=== PATIENT | female | born 2000 | race Caucasian/White ===

== ENCOUNTER 2022-04-05 08:01 | Emergency (ER) | payer BC, SELFPAY ==
[2022-04-05 08:15] VITALS: BP 114/80; PULSE 110; RESP 20; TEMP 37.3; O2SAT 100
--- NOTE | 2022-04-05 08:19 | ED.URI ---
HPI - URI/Sore Throat General Chief Complaint: Upper Respiratory Infection Stated Complaint: COUGH Time Seen by Provider: 04/05/22 08:19 Source: patient and RN notes reviewed Mode of arrival: ambulatory Limitations: no limitations History of Present Illness HPI Narrative: 21-year-old female presenting for complaint cough and bilateral ear pain worsening over the past 5 days. She endorses flu like symptoms at the onset with fever, body, and fatigue which have resolved over last 2 days. States last night she felt more congested ear pain and cough persisted, productive of yellow or green sputum. She denies shortness of breath, wheezing, nausea, vomiting, diarrhea. She has taken Sudafed and decongestants for symptoms. She denies sick contacts. MD elicited complaint: cough Related Data Allergies Allergy/AdvReac Type Severity Reaction Status Date / Time No Known Allergies Allergy Unverified 04/05/22 08:12 Review of Systems Review of Systems: ROS per HPI Exam Narrative: GENERAL: Ill-appearing, nontoxic EYES: PERRLA, conjunctivae clear ENT: Mucous membranes moist. Bilateral external nares red and excoriated. Bilateral TMs erythematous, bulging and intact, with purulent effusion. No drainage no tragal tenderness. Oropharynx without lesions or exudate, no drooling, no hoarseness, no trismus, uvula midline. NECK: Supple. No lymphadenopathy CHEST: Clear to auscultation, breath sounds equal. No wheezing, rhonchi, rales, or stridor. No respiratory distress, speaks in full sentences. HEART: Regular rate and rhythm. No murmur heard. SKIN: Warm, dry, no rash. NEURO: Alert and oriented x3. PSYCH: Normal mood and affect Course Course Emergency Course: Patient is aware of diagnosis, understands and agrees to treatment plan. Anticipatory guidance given. Patient agrees to follow-up as directed and is aware of reasons to seek care at the emergency department. Portions of this record may have been created with voice recognition software Level of Care: Express Care Visit Vital Signs Vital signs: Vital Signs Temperature 99.1 F 04/05/22 08:15 Pulse Rate 110 H 04/05/22 08:15 Respiratory Rate 20 04/05/22 08:15 Blood Pressure 114/80 04/05/22 08:15 Pulse Oximetry 100 04/05/22 08:15 Temperature 99.1 F 04/05/22 08:15 Pulse Rate 110 H 04/05/22 08:15 Respiratory Rate 20 04/05/22 08:15 Blood Pressure 114/80 04/05/22 08:15 Pulse Oximetry 100 04/05/22 08:15 reviewed MDM - URI/Sore Throat MDM Narrative Medical decision making narrative: Advised supportive measures and signs/symptoms to go to the ER. Pt is appropriate for outpt treatment and f/u. Differential Diagnosis Differential diagnosis: Likely upper respiratory infection, otitis media, sinusitis, viral infection and bronchitis Discharge Plan Discharge Clinical Impression: Viral infection, Otitis media Patient Disposition: Home, Self-Care Condition: Stable Instructions: Antibiotic Form, Ear Infection (ED) Additional Instructions: Take antibiotics as directed. Recommend antihistamine such as Benadryl, Zyrtec or Sarahy for sinus congestion Flonase nasal spray, 1 spray in each nostril once daily until symptoms improve Symptomatic treatment includes: rest, fluids, and increase humidity of the air at home. Tylenol and Motrin every 8 hours as needed to reduce fever, pain Benzonatate as needed for cough Please schedule a follow-up visit with your personal physician for further evaluation and treatment within 3-5days. If your symptoms persist, change or worsen significantly, go to the emergency department for further evaluation. Prescriptions: New azithromycin [Zithromax Z-Castro] 250 mg tablet See Rx Instructions .ROUTE .COMPLEX Qty: 6 0RF Rx Instructions: For 250 mg dose pack: take 500 mg today (day 1), then 250 mg for 4 days (days 2-5) benzonatate 200 mg capsule 200 mg PO TID PRN (Reason: cough) Qty: 20 0RF Foll
== END 2022-04-05 08:36 | disposition home or self-care (01) ==
PROVIDERS: Emergency Provider Nurse Practitioner Family
DX: B34.9 Viral infection, unspecified (principal); H66.93 Otitis media, unspecified, bilateral
CPT/HCPCS: 99203; G0463

== ENCOUNTER 2025-02-26 19:20 | Emergency (ER) | payer BC, SELFPAY ==
--- NOTE | ~2025-02-26 | US_ITS ---
EXAMINATION: US OB <= 14 weeks fetus DATE: 02/26/2025 21:42 INDICATION: Vaginal and abdominal pain during first trimester of TECHNIQUE: Real-time pelvic ultrasound utilizing both a transvaginal and transabdominal probe was performed. The interpreting radiologist was not present for the study. COMPARISON: None. FINDINGS: The uterus measures 9.6 x 8.2 x 9.2 cm. There is an intrauterine gestational sac. A yolk sac and pole are identified. The crown rump length measures 3.2 cm, which correlates with an estimated gestational age of 10 weeks and 1 days. heart motion is identified measuring 180 beats per minute (bpm) by M-mode Doppler. The right ovary measures 3.0 x 2.3 x 2.3 cm. The left ovary measures 1.9 x 1.9 x 1.6 cm. Vascular flow identified at both ovaries on color Doppler. There is no free fluid in the pelvis. IMPRESSION: 1. Single living fetus with heart rate of 180 bpm. 2. Gestational age by ultrasound of 10 weeks 1 day(s) +/- 6 day(s) with ultrasound estimated date of delivery (TITA) of 09/23/2025. Reviewed, dictated and finalized at location A. D RAIL INST[employer]ER IMPRESSION: 1. Single living fetus with heart rate of 180 bpm. 2. Gestational age by ultrasound of 10 weeks 1 day(s) +/- 6 day(s) with ultras ound estimated date of delivery (TITA) of 09/23/2025.
--- OUTSIDE RECORDS SUMMARY | 2025-02-26 19:22 | XMS_ITS | Data Portability ---
Author Organization [facility] [place], [place] Address [address] [place] [address] Assessment Encounter Date Assessment Date Assessment LastModified by Organization Details LastModified Time 07/25/2022 07/25/2022 Annual gynecological exam performed. Patient will come back in a year unless there are new symptoms. Suggest Calcium with Vitamin D if not eating in diet. Patient advised to get annual flu shot. Recommend yearly physicals and preform monthly breast exams. Genetic testing is available for patients with family history of cancer. Engage in safe sexual practices, use condoms. Encouraged to have daily exercise. Avoid tobacco and illicit drugs, moderation of alcohol. If BMI greater than 25 dietary consult advised. If you have any questions please call or email. Not available 07/25/2022 15:07:16 11/13/2023 11/13/2023 Annual gynecological exam performed. Patient will come back in a year unless there are new symptoms. Take Calcium with Vitamin D 1200mg daily if not receiving in daily diet. It is strongly advised to have an annual flu shot and up can obtain at most pharmacies. If you have not had a TDap shot in the last 10 years you should obtain one as well. Discussed with patient & provided with information regarding Gardisil vaccine to prevent the 4 strains for HPV that cause cervical cancer if under age 26. Encourage safe sexual practices, to use condoms and limit partners if not already in a monogamous relationship. Do monthly self breast exams. Have mammogram yearly or every other year depending on family history. BRCA testing is now available for patients with strong genetic history of female cancer. If interested contact the office. Engage in daily exercise of low impact aerobic exercise 45-60 minutes 4-5 times weekly. Avoid tobacco and illicit drugs as well as using moderation with alcohol intake less than 1-2 8 oz beverages daily. This lifestyle behavior pattern will lead to less health conditions and longer life span. If BMI greater than 25 weight watchers or dietary consult advised. pap up to date-deferred declined std testing Patient received above instructions, and questions have been answered. If you have any questions please call or respond to this email. Patient was made aware of the patient portal and may obtain a paper copy of today's plan if desired. [email or web address] Not available 11/13/2023 10:55:00 11/14/2024 11/14/2024 Annual gynecological exam performed. Patient will come back in a year unless there are new symptoms. [email or web address] Not available 11/14/2024 09:56:13 Plan of Treatment Reminders Order Date Submit Date Provider Last Modified By Organization Details Last Modified Time Details Appointments U/S OB FIRST LOOK 2024 11:00A M ULTRASOUND Not available Not available Not available OB NEW 2024 11:30A M Ce English CNM Not available Not available Not available Lab None record ed. Referral None record ed. Procedures None record ed. Surgeries None record ed. Imaging None record ed. Medication Orders None record ed. Patient TargetsNo targets recorded. Patient InstructionsNo instructions recorded. Reason for Referral None Reported. Results Created Date Observation Date Name Description Value Unit Range Abnormal Flag Note LastModifiedBy Organization Detail LastModifiedTime 07/26/19 23 07/25/2022 IMAGE GUIDE D PAP, REFLE X HPV IF ASCUS ONLY image guided Pap, reflex HPV ASCUS only SEE RESULT S BELOW CASE REPOR T: Cytol ogy Gynec ologi mariajose Repor t Case: [id number] Autho dot levine Provi randall: Ce Tom NP Colle cted: 07/25 1540 Order ing Locat ion: [place] [facility] Recei dia: 07/28 1200 First Scree n: Nacha mpass ak, Sivil ay, CT Speci men: Scree prashanth Pap - Image d, Cervi x STATE MENT OF ADEQU ACY: Satis facto ry for evalu ation Trans forma tion zone compo nent prese nt FINAL DIAGN OSIS: Negat stephanie for Intra epith elial Lesio n or Malig brien (NIL) . Elect yoli umana america d by Sathya rodgers ak, Mariam ay, CT on 023 at 3:10 PM ----- ----- ----- ----- ----- ----- ----- ----- ----- ----- ----- ----- ----- ----- ----- ----- ----- ---- COMME NT: This speci men was revie wed by a Cytot echno logis t and/o r Patho logis t (as indic ated in this repor t) after evalu ation using the Thinp rep Imagi ng Syste m. CLINI MARIAJOSE INFOR MATIO N: Menst rual Statu s: LMP (if appli cable ): Clini mariajose Histo ry/Pr eviou s Pap: Type of Neopl marcie (if appli cable ): Signi fican t Clini mariajose Findi ngs: Other Histo ry: Hormo choco (if appli cable ): PAP EDUCA CRISTIN L NOTE: The Pap Test is a scree prashanth test with an inher ent false negat stephanie rate. Liqui d-bas ed sampl ing may decre ase, but will not elimi fatimah, false negat stephanie resul ts. A negat stephanie resul t does not precl ude the prese nce and/o r devel opmen t of disea se, since the prese nce of abnor mal cells in the sampl e depen ds on the locat ion of the lesio n and sampl ing techn ique. Gissell nued regul ar scree prashanth is the best metho d of cance r preve ntion . If repor kelvin cytol ogic findi ng do not corre late with physi mariajose and/o r histo rical findi ngs, furth er inves tigat ion is recom claudine d, as michel marie nted. Not Available [facility] (Lab) [address], [place], [address], 07/29/2022 16:13:41 11/15/19 25 11/14/2024 IMAGE GUIDE D PAP, REFLE X HPV IF ASCUS ONLY image guided Pap, reflex HPV ASCUS only SEE RESULT S BELOW CASE REPOR T: Cytol ogy Gynec ologi mariajose Repor t Case: [id number] Autho dot levine Provi randall: Dermo dy, Ann , ANP, BOILER ROOM OPERATOR Colle cted: 11/14 0953 Order ing Locat ion: [place] [facility] [place] Recei dia: 11/15 0907 First Scree n: April Lujan, CT Speci men: Mare alford Pap - Image d, Cervi x STATE MENT OF ADEQU ACY: Satis facto ry for evalu ation Trans forma tion zone compo nent prese nt ----- ----- ----- ----- ----- ----- ----- ----- ----- ----- ----- ----- ----- ----- ----- ----- ----- ---- FINAL DIAGN OSIS: Negat stephanie for Intra epith elial Adithya crain or Kayla tesfaye ([facility]) . Elect yoli umana america d by April Lujan, CT on 2024 at 1246 CDT ----- ----- ----- ----- ----- ----- ----- ----- ----- ----- ----- ----- ----- ----- ----- ----- ----- ---- COMME NT: This speci men was revie wed by a Cytot echno logis t and/o r Patho logis t (as indic ated in this repor t) after evalu ation using the Thinp rep Imagi ng Syste m. CLINI MARIAJOSE INFOR MATIO N: Menst rual Statu s: LMP (if appli cable ): Clini mariajose Histo ry/Pr eviou s Pap: Type of Neopl marcie (if appli cable ): Signi fican t Clini mariajose Findi ngs: Other Histo ry: Hormo choco (if appli cable ): PAP EDUCA CRISTIN L NOTE: The Pap Test is a scree prashanth test with an inher ent false negat stephanie rate. Liqui d-bas ed sampl ing may decre ase, but will not elimi fatimah, false negat stephanie resul ts. A negat stephanie resul t does not precl ude the prese nce and/o r devel opmen t of disea se, since the prese nce of abnor mal cells in the sampl e depen ds on the locat ion of the lesio n and sampl ing techn ique. Gissell nued regul ar scree prashanth is the best metho d of cance r preve ntion . If repor kelvin cytol ogic findi ng do not corre late with physi mariajose and/o r histo rical findi ngs, furth er inves tigat ion is recom claudine d, as clini edward warra nted. Not Available [facility] (Lab) [address], [place], [address], 11/16/2024 13:50:12 11/15/19 25 11/14/2024 CT/GC AND TRICH OMONA S VAGIN JOBY (RRNA ), THINP REP VIAL CT/GC and trichomonas vaginalis (rrna), thinprep SEE RESULT S BELOW negati ve CHLAM YDIA TRACH OMATI S, PCR: Negat stephanie NEISS ERIA GONOR RHOEA E, PCR: Negat stephanie TRICH OMONA S VAGIN JOBY RIBOS OMAL RNA (RRNA ): Negat stephanie Not Available [facility] (Lab) [address] [facility], [place], [address], 11/16/2024 13:50:13 02/16/20 25 02/15/2025 CT/GC AND TRICH OMONA S VAGIN JOBY (RRNA ), URINE chlamydia trachomatis, PCR Negati ve negati ve Not Available [facility] (Lab) [address] , [place], [address], 02/16/2025 14:04:10 02/16/20 25 02/15/2025 CT/GC AND TRICH OMONA S VAGIN JOBY (RRNA ), URINE neisseria gonorrhoeae, PCR Negati ve negati ve Not Available [facility] (Lab) [address] [facility], [place], [address], 02/16/2025 14:04:10 02/16/20 25 02/15/2025 CT/GC AND TRICH OMONA S VAGIN JOBY (RRNA ), URINE trichomonas vaginalis ribosomal RNA (rrna) Negati ve negati ve Not Available [facility] (Lab) [address] [facility], [place], [address], 02/16/2025 14:04:10 02/16/20 25 02/15/2025 US, obste tric, 1st trime ster No observ ation record ed. [email or web address] [address], [place], [address], 02/15/2025 13:25:36 Result Notes None recorded. Problems Name Problem SNOMED Code Status Onset Date Resolution Date Notes Provider Name and Address Organization Details Recorded Time SNOMED CT Concept Completed 201805/22/2021 Encntr for shoe turner exam (general ) (routine ) w/o abn findings ;Recorde d Elsewher e: No Locat ion: [facility] S ource: EHR Architectural Representative bettye: N Caron ce ID: [id number] Joey lable Time: 11:00:00 AM Tammy rios [facility] 18:14:41 Contrace ptive sheath status [id number] Completed 201805/22/2021 Encounte r for initial prescrip tion of other contrace ptives;R ecorded Elsewher e: No Locat ion: [facility] S ource: EHR Architectural Representative bettye: N Arianeti ce ID: 0001 Joey lable Time: 11:00:00 AM Tammy rios [facility] 2 18:14:[address] Concept Completed 201805/22/2021 Encntr for general adult medical exam w/o abnormal findings ;Recorde d Elsewher e: No Locat ion: [facility] S ource: EHR Architectural Representative bettye: N Practi ce ID: 0001 Joey lable Time: 11:00:00 AM Tammyjonas Reed [facility], [facility] 2 18:14:39 Uses combined oral contrace ption 903072929 Completed 201805/22/2021 Encounte r for repeat prescrip tion for control pill;Rec orded Elsewher e: No Locat ion: [facility] S ource: EHR Architectural Representative bettye: N Practi ce ID: 0001 Joey lable Time: 10:45:00 AM Tammy Reed [facility], [facility] 2 18:14:35 Problem Notes None recorded. Procedures Surgical History Date Name Laterality Status Provider Name and Address Organization Details Recorded Time 11/14/2024 Date of Last Pap Smear completed Elise Bui [facility] 02/15/2025 12:30:33 Imaging Results None recorded. Procedure Notes None recorded. Medical Equipment None Reported. Allergies No known drug allergies Medications Name Sig Start Date Stop Date Status Note LastModified by Organization Details LastModified Time azithromy melody 250 mg tablet TAKE 2 TABLETS BY MOUTH TODAY, THEN TAKE 1 TABLET DAILY FOR 4 DAYS 07/25 completed Not Available Not Available Not Available benzonata te 200 mg capsule TAKE 1 CAPSULE BY MOUTH THREE TIMES A DAY NEEDED FOR COUGH 07/25 completed Not Available Not Available Not Available Ortho-Nov um (28) 1 mg-35 mcg tablet take 1 tablet by oral route every day 05/04 completed Prescrib ed Elsewher e: No Locat ion: [facility] M odify By: suzie marr DateTime : 04/18/20 10:45:00 AM Not Available Not Available Not Available Sprintec (28) 0.25 mg-0.035 mg tablet TAKE 1 TABLET BY MOUTH EVERY DAY 07/25 completed Not Available Not Available Not Available active Not Available Not Avai lable Not Available ID NOW COVID-19 Test Kit TEST DIRECTED TODAY 07/25 completed Not Available Not Available Not Available Vitals Date Recorded Body height Body mass index (BMI) Body weight Systolic And Diastolic Provider Name and Address Organization Details Last Updated DateTime 07/25/2022 161.29 cm 18.8 kg/m2 08386.98 g 134/91 mm[Hg] Tammy Reed [facility] 07/25/2022 14:54:16 Date Recorded Body height Body mass index (BMI) Body weight Systolic And Diastolic Provider Name and Address Organization Details Last Updated DateTime 11/13/2023 161.29 cm 19.4 kg/m2 58574.75 g 151/91 mm[Hg] Tammy Reed [facility] 11/13/2023 10:43:44 Date Recorded Body height Body mass index (BMI) Body weight Systolic And Diastolic Systolic And Diastolic Provider Name and Address Organization Details Last Updated DateTime 11/14/2024 162.56 cm 20.1 kg/m2 81827.31 g 146/92 mm[Hg] 142/90 mm[Hg] Margoth Hyatt [facility] 09:57:24 Date Recorded Body height Body mass index (BMI) Body weight Systolic And Diastolic Provider Name and Address Organization Details Last Updated DateTime 02/15/2025 162.56 cm 20.1 kg/m2 70473.31 g 126/85 mm[Hg] Elise Bui [facility] 02/15/2025 12:29:20 Social History Question Answer Notes LastModified by Organizat ion Details LastModified Time Tobacco Smoking Status Never Smoker Tammy Reed [facility] 03/28/2020 11:21:12 Do You Have An Advance Directive? No Information n ot available 02/15/2025 Are You Blind Or Do You Have Difficulty Seeing? No [email or web address] Information n ot available 07/25/2022 What Is Your Level Of Caffeine Consumption? Occasional [email or web address] Information not available 07/25/2022 How Much Tobacco Do You Chew? None Information not available 02/15/2025 In The 14 Days Before Symptom Onset, Have You Had Close Contact With A Laboratory-confirm ed COVID-19 While That Case Was Ill? No [email or web address] Information n ot available 07/25/2022 In The 14 Days Before Symptom Onset, Have You Had Close Contact With A Person Who Is Under Investigation For COVID-19 While That Person Was Ill? No [email or web address] Information not available 07/25/2022 Have You Been To An Area Known To Be High Risk For COVID-19? No [email or web address] Information not available 07/25/2022 Are You Deaf Or Do You Have Serious Difficulty Hearing? No [email or web address] Information not available 07/25/2022 What Type Of Diet Are You Following? REGULAR Information n ot available 02/15/2025 What Is The Highest Grade Or Level Of School You Have Completed Or The Highest Degree You Have Received? [id number] Information not available 02/15/2025 Are There Any Guns Present In Your Home? No Information not available 02/15/2025 What Was The Date Of Your Most Recent Tobacco Screening? 07/25/2022 [email or web address] Information not available 07/25/2022 Do You Use Protection During Sex? No Information not available 02/15/2025 Do You Have Smoke And Carbon Monoxide Detectors In Your Home? Yes [email or web address] Information not available 07/25/2022 How Much Tobacco Do You Smoke? No [email or web address] Information not available 03/28/2020 Do You Use Sunscreen Routinely? Yes [email or web address] Information not available 07/25/2022 Have You Used IV Drugs? No Information not available 02/15/2025 Do You Have Difficulty Walking Or Climbing Stairs? No [email or web address] Information not available 07/25/2022 Sex: Unknown Functional Status Question Answer Note LastModified by Organizat ion Details LastModified Time Do you use any illicit or recreational drugs? No Information not available 07/25/2022 Do you or have you ever used any other forms of tobacco or nicotine? No [email or web address] Information not available 07/25/2022 What is your level of alcohol consumption? None [email or web address] Information not available 03/28/2020 Do you or have you ever used smokeless tobacco? Never used smokeless tobacco Information not available 03/28/2020 Are you able to walk independently without assistance or assistive devices? YESWOREST Information not available 07/25/2022 Are you able to care for yourself independently? Yes [email or web address] Information not available 07/25/2022 What is your occupation? [employer] Information not available 02/15/2025 Do you have difficulty dressing, bathing, grooming, or toileting? No [email or web address] Information not available 07/25/2022 Do you or have you ever used e-cigarettes or vape? Never used electronic cigarettes [email or web address] Information not available 03/28/2020 What is your exercise level? Occasional [email or web address] Information not available 03/28/2020 Mental Status Question Answer Note LastModified by Organization D etails LastModified Time Do you feel stressed (tense, restless, nervous, or anxious, or unable to sleep at night)? [id number] Information not available 02/15/2025 Family History Relationship Description Onset Age of this Age Resolved Age Notes LastModified by Organization Details LastModified Time Mother Malignant neoplasm of breast 40 Not available 2024 11:52:05 Maternal Grandmother Malignant neoplasm of breast Not available 2024 11:52:05 Maternal Grandmother Malignant neoplasm of ovary [email or web address] Not available 03/27 19:45:54 Maternal Grandmother Anemia [email or web address] Not available 04/2019 19:46:04 Paternal Aunt Malignant neoplasm of breast [email or web address] Not available 2024 11:52:05 Notes:Maternal grandmother: Anemia, Cancer, breast, Cancer, ovarian Mother: Cancer, breast Paternal aunt: Cancer, breast Medical History Condition Response Allergies (Food, seasonal, environmental ) N Other N Breast Cancer N Drug/Latex Allergies/Reactions N Blood Transfusion N Lung Disease N Dermatologic Disorders N Defects or Inherited Disease N Breast Problem N Gestational Diabetes N Hematologic disorders N Anesthesia Complications N History of STI N Deep Vein Thrombosis N Polycystic ovary syndrome N Anxiety Disorder N Autoimmune disease N Arthritis N Polyps N Infertility N History of abnormal pap N Acid Reflux (GERD) N Cancer N Varicosities N Stroke N Neurologic/Epilepsy N Endometriosis N High Cholesterol N Fibromyalgia N Headaches N Kidney Disease N Heart Problems N Kidney or Bladder Problems N Thyroid Problems N GI Problems N Eating Disorder N Anemia N Art (IVF or FET) N Psychiatric Illness N Ovarian Cancer N Diabetes N Pulmonary (TB, Asthma) N Hepatitis/Liver Disease N Eczema N Urinary Tract Infection N Abuse/Domestic Violence N Asthma N Trauma/Violence N Depression/ depression N Heart Disease N Pre-Eclampsia N Hypertension N Osteoporosis N Thrombophilias N Gynecological History Statement/Question Response Abnormal Pap N Flow Moderate Date of Last Mammogram Date of LMP 12/14/2024 On BCP's at Conception? N STIs/STDs N Was last menstrual period normal Y HPV Vaccine N Duration of Flow (days) 5 Current Control Method Are cycles usually normal Y Frequency of Cycle (Q days) 28 Most Recent Bone Density Sexually Active? Y None Menses Monthly Y Age of first menstrual cycle 10 Date of Last Pap Smear 11/14/2024 Sexual Problems? N LMP Definite Desired Control Method None N Obstetrics History GPAL:G 0 P 0 0 0 0 Past Encounters Encounter ID Performer Location Encounter Start Date Encounter Closed Date Diagnosis/Indication Diagnosis SNOMED-CT Code Diagnosis ICD10 Code Diagnosis IMO Codes Diagnosis Note [id number] Ce English CNM [place] [address] [address] 03/28/2020 11:08:08 03/28/2020 12:14:27 Gynecologic examination 95902057 Z01.419 [id number] Ce English CNM [place] [address] [address] 05/22/2021 18:02:27 05/23/2021 16:23:31 Pain in pelvis 16311620 R10.2 left sided pain no appt in office will do at [facility] f/u pending results Gynecologi c examination 34587390 Z01.419 Z11.3 Z11.8 [id number] [facility] [address] [address] 07/25/2022 14:44:56 07/25/2022 15:13:24 Gynecologic examination 49657910 Z01.419 Z11.3 Z11.8 [id number] Ce English CNM [place] [address] [address] 11/13/2023 10:34:46 11/13/2023 10:57:26 Gynecologic examination 83295822 Z01.419 Z11.3 Z11.8 [id number] Milton Ospina MD [place] [address] [address] 11/14/2024 09:49:58 11/14/2024 10:22:45 Postcoital bleeding 82544063 N93.0 [id number] Discussed possible causes of post-coita l bleeding, including vaginal dryness, friction/i njury, infection, cervical polyps, cervical dysplasia, and hormonal changes.Re commended safe sexual practices, lubricatio n if experienci ng vaginal dryness, and comfortabl e positions during intercours e.Will r/o infection and cervical dysplasia with pap smear and STI testing.Zoë scussed that no cervical abnormalit ies were noted on physical exam at this time.Patie nt to monitor symptoms and if symptoms persist or worsen, pelvic u/s recommende d for further evaluation .Patient verbalized understand ing. Gynecologi c examination 60351942 Z01.419 [id number] Annual gynecologi mariajose exam performed. Patient will come back in a year unless there are new symptoms. Suggest Calcium with Vitamin D if not eating in diet. Patient advised to get annual flu shot. Recommend yearly physicals and perform monthly breast exams. Genetic testing is available for patients with family history of cancer. Engage in safe sexual practices, use condoms. Encouraged to have daily exercise. Avoid tobacco and illicit drugs, moderation of alcohol. If BMI greater than 25 dietary consult advised. If you have any questions please call or email. Pap smear- pap w/ HPV reflex collected laboratory evaluation - PCP STI testing - requested Venereal d isease screening 137524745 Z11.3 102995 Pt requested STI testing.Zoë scussed the various types of STDs, related symptoms and the potential consequenc es (including effects on fertility) of STD infections . Reviewed ways to limit exposure and prevention techniques . [id number] Milton Ospina MD [place] [address] [address] 02/15/2025 11:51:29 02/15/2025 12:24:29 [id number] Ce Jessica English CNM [place] [address] [address] 02/15/2025 11:52:02 02/15/2025 13:39:05 Amenorrhea 27276431 N91.2 09803 reviewed uspap up to datef/u 12 week new ob and first look plan labs and nipteducat ion and precaution sdo not rec horse back riding Health Concerns Section Related Observation LastModified by Organization Detai ls LastModified Time None Recorded Concern Status LastModified by Organization Details LastModified Time None Recorded Advance Directives Directive N: Payers Insurance Date Sequence Insurance Name Policy Number Policy Martinez Covered Member ID Martinez Member ID Guarantor Name 07/22/2022 1 [place] [id number] Ry Jessica [id number] Juanita Aracely 02/14/2025 1 [place] [id number] Juanita Jessica [id number] Juanita Aracely 11/09/2024 1 [place] 112 Ry Kenny Aracely [id number] Juanita Jessica Notes Date Note Type Note Provider Name and Address Organization Details Recorded Time 3 text/html Annual GYNReported by PatientHistoryFor history, patient reportsno gynecologic complaintsandno change in interval history.Genitourinary symptomsFor menstrual cycle, patient reportsnormal menses. For vagina, patient reportsnormal vaginal discharge.Breast symptomsFor breast, patient reportsno breast pain,no breast lump, andno nipple discharge.ContraceptionFo r current contraception, (declines ocp caused mood changes, condoms declines std testing).Endocrine symptomsFor sexual complaints, patient reportsno sexual complaints,no pain during intercourse, andnormal libido. For menopausal symptoms, patient reportsno menopausal symptomsandnormal vaginal lubrication.Psychological symptomsFor psychological symptoms, patient reportsno depression,no anxiety, andno pmdd.Preventative measuresFor preventive measures, patient reportsencourage self breast examination,encourage regular exercise, andencourage no tobacco use.doing well, firm spot on cervixrode her horse this amROS as noted in the [facility] Ce English CNM [address], [place], [address], [facility] 07/25/2022 15:07:54 4 text/html Annual GYNReported by PatientHistoryFor history, patient reportsno gynecologic complaints(declines std testing).Genitourinary symptomsFor menstrual cycle, patient reportsnormal menses. For urinary symptoms, patient reportsno hematuriaandno incontinence. For vulva, patient reportsno genital lesion. For vagina, patient reportsnormal vaginal discharge.Breast symptomsFor breast, (left breast smaller).Endocrine symptomsFor sexual complaints, patient reportsno sexual complaints,no pain during intercourse, andnormal libido. For menopausal symptoms, patient reportsno menopausal symptomsandnormal vaginal lubrication.Psychological symptomsFor psychological symptoms, patient reportsno depression,no anxiety, andno pmdd.Preventative measuresFor preventive measures, patient reportsencourage self breast examination,encourage regular exercise, andencourage no tobacco use.doing well, has been rising horses, beautiful weatherROS as noted in the [facility] Ce English CNM [address], [place], [address], [facility] 11/13/2023 10:57:14 5 text/html Annual GYNReported by PatientGenitourinary symptomsFor menstrual cycle, patient reportsnormal menses(post-coital bleeding). For urinary symptoms, patient reportsno hematuriaandno incontinence. For vulva, patient reportsno genital lesion. For vagina, patient reportsnormal vaginal discharge.Breast symptomsFor breast, patient reportsno breast pain,no breast lump, andno nipple discharge.ContraceptionFo r current contraception, patient reportscondoms.Endocrine symptomsFor sexual complaints, patient reportsno sexual complaints,no pain during intercourse, andnormal libido. For menopausal symptoms, patient reportsno menopausal symptomsandnormal vaginal lubrication.Psychological symptomsFor psychological symptoms, patient reportsno depression,no anxiety, andno pmdd.Preventative measuresFor preventive measures, patient reportsencourage self breast examination,encourage regular exercise,encourage no tobacco use, andencourage regular mammograms starting age 40. 24 y/o female presents for annual exam.Patient reports spotting after intercourse x 2 incidences over the past month. Denies new partner.Neg pain of abd/pelvis/flankNeg urinary sx'sNeg GI sx'sNeg N/V/F/C/DNeg Vag d/c, odor, irritation, itching ANN VALENCIA, SHAUNA [address], [place], [address], [facility] 11/14/2024 10:22:25 5 text/html ROS as noted in the HPI amenorrhea, surprise, but very excitedpap up to datesome nausea Ce English CNM [address], [place], [address], [facility] 02/15/2025 13:34:31 OBGyn Episode No OBEpisode recorded.
[2025-02-26 19:24] VITALS: BP 136/80; PULSE 94; RESP 20; TEMP 36.7; O2SAT 100
[2025-02-26 23:09] LABS: BEDSIDEPREGUCG Positive (Negative)
[2025-02-26 23:12] LABS: Hematocrit 38.9 % (37.0-47.0); Hemoglobin 14.0 g/dL (12.0-15.0); Immature Granulocyte Percent A 0.4 % (0-0.5); Lymphocytes Absolute Auto 1.86 K/mm3 (0.9-3.2); Mean Corpuscular HGB Conc 36.0 g/dl (32-36); Mean Corpuscular Hemoglobin 32.7 pg (26-34); Mean Corpuscular Volume 90.9 fl (80-100); Nucleated Red Blood Cells Absolute Auto 0.000 K/mm3 (0.0-0.012); Nucleated Red Blood Cells Perc 0.0 % (0.0-0.2); Platelet Count Result 234 k/mm3 (150-375); Red Blood Count 4.28 M/mm3 (4.2-5.4); White Blood Count 9.9 K/mm3 (4.5-10.0)
--- NOTE | 2025-02-26 23:13 | ED_ITS ---
HPI - Nausea/Vomiting/Diarrhea General Chief complaint: Nausea/Vomiting/Diarrhea Stated complaint: N/V 10WKS PREG Time Seen by Provider: 02/26/25 21:10 History of Present Illness HPI Narrative: Patient is a 24-year-old female presents to the ER with nausea and vomiting during . She endorses nausea and vomiting throughout her entire but reports this morning it became worse. Patient reports her OBGYN has had her take vitamin B6 and Unasyn but this is not helping relieve her symptoms. She endorses some dizziness associated with the nausea and vomiting. Patient denies any vaginal bleeding, urinary symptoms, or recent fevers. Related Data Allergies Allergy/AdvReac Type Severity Reaction Status Date / Time No Known Allergies Allergy Verified 02/26/25 19:21 Review of Systems 2 Review of Systems: All systems reviewed & are unremarkable except as noted in HPI and below Exam 2 Narrative: GENERAL: Well appearing, well-nourished, non-toxic, in no acute distress. HEAD: Normocephalic, atraumatic. NECK: Supple. No adenopathy, no masses. RESPIRATORY: Airway patent, respirations nonlabored. Clear to auscultation bilaterally, no rales, rhonchi, wheezing. CARDIOVASCULAR: Regular rate and rhythm without murmurs, rubs, or gallops. Peripheral pulses 2+ and equal bilaterally. ABDOMINAL: Soft, nontender, nondistended, no hepatosplenomegaly. Normoactive BS. MUSCULOSKELETAL: Moves all extremities. Strength/ROM intact without gross deformities. SKIN: Warm, dry, pallor. No rashes. NEURO: A&O X3. Speech clear. Cranial nerves II-XII intact. No ataxic movements. PSYCHIATRIC: Appropriate mood and affect. Normal interaction. Course Vital Signs Vital signs: Vital Signs Temperature 36.7 C 02/26/25 19:24 Pulse Rate 94 02/26/25 19:24 Respiratory Rate 20 02/26/25 19:24 Blood Pressure 136/80 02/26/25 19:24 Pulse Oximetry 100 02/26/25 19:24 Temperature 36.7 C 02/26/25 19:24 Pulse Rate 94 02/26/25 19:24 Respiratory Rate 20 02/26/25 19:24 Blood Pressure 136/80 02/26/25 19:24 Pulse Oximetry 100 02/26/25 19:24 MDM - Nausea/Vomiting/Diarrhea MDM Narrative Medical decision making narrative: Patient is a 24-year-old female presents to the ER with nausea and vomiting during . She endorses nausea and vomiting throughout her entire but reports this morning it became worse. Patient reports her OBGYN has had her take vitamin B6 and Unasyn but this is not helping relieve her symptoms. She endorses some dizziness associated with the nausea and vomiting. Patient denies any vaginal bleeding, urinary symptoms, or recent fevers. Labs Ordered: CBC, CMP, beta hCG, UA Imaging Ordered: Ultrasound Ob Medications Ordered: 1 L normal saline IV bolus, Reglan IV, Benadryl IV Results: Patient's vaginal ultrasound indicates single intrauterine gestation with cardiac activity. Ultrasound age 10 weeks 1 day. Heart rate 180. Unremarkable ovaries. No acute finding. Diagnosis: Nausea and vomiting during , mild dehydration, UTI Consults: OBGYN (outpatient) Patient Education/Shared MDM: Results of lab work and ultrasound shared with patient. She endorses improvement of symptoms following medication administration. Patient strongly advised to maintain hydration status upon discharge and follow-up with her OBGYN as soon as possible. She will be discharged home with a prescription for Reglan and Keflex. Strict return precautions provided. Patient verbalized understanding and is in agreement with plan. Vital signs stable at time of discharge. All questions answered. Differential Diagnosis Differential diagnosis: Likely gastroenteritis, dehydration and other ( induced nausea vomiting, UTI) Lab Data Attestation: I reviewed the patient's lab results. 02/26/25 23:01 02/26/25 23:01 Labs: Lab Results 02/26/25 02/26/25 Range/Units 23:01 23:07 WBC 9.9 (4.5-10.0) K/mm3 RBC 4.28 (4.2-5.4) M/mm3 Hgb 14.0 (12.0-15.0) g/dL Hct 38.9 (37.0-47.0) % MCV 90.9 (80-100) fl MCH 32.7 (26-34) pg MCHC 36.0 (32-36) g/dl RDW 12.1 (11.5-14.5) % Plt Count 234 (150-375) k/mm3 MPV 8.6 (7.4-10.4) fl Immature Gran % (Auto) 0.4 (0-0.5) % Neut % (Auto) 73.4 H (45.5-73.1) % Lymph % (Auto) 18.8 (18.3-44.2) % [place] % (Auto) 6.5 (2.6-8.5) % Eos % (Auto) 0.7 (0-4.4) % Baso % (Auto) 0.2 (0.2-1.2) % Lymph # (Auto) 1.86 (0.9-3.2) K/mm3 [place] # (Auto) 0.6 (0.1-0.6) K/mm3 Eos # (Auto) 0.1 (0-0.3) K/mm3 Baso # (Auto) 0.0 (0.0-0.1) K/mm3 Abs Immat Gran (auto) 0.04 H (0.00-0.031) K/mm3 Absolute Neuts (auto) 7.3 H (1.3-6.7) K/mm3 Absolute Nucleated RBC 0.000 (0.0-0.012) K/mm3 Nucleated RBC % 0.0 (0.0-0.2) % Sodium 133 L (137-145) mmol/L Potassium 3.5 (3.4-5.0) mmol/L Chloride 101 (98-107) mmol/L Carbon Dioxide 22 (22-30) mmol/L Anion Gap 10 (4-12) mmol/L BUN 6 L (7-17) mg/dL Creatinine 0.55 L (0.7-1.0) mg/dL Estim Creat Clear Calc 108 ml/min Estimated GFR > 60 (59 - ) Glucose 103 (65-110) mg/dL Calcium 9.2 (8.4-10.2) mg/dL Total Bilirubin 1.2 (0.2-1.3) mg/dL AST 23 (14-36) U/L ALT 16 (6-35) U/L Alkaline Phosphatase 43 (38-126) U/L Total Protein 8.1 (6.3-8.2) g/dL Albumin 4.7 (3.5-5.1) g/dL Beta HCG, Quant 814843.00 mIU/ML Urine Color Dark yellow (Yellow) Urine Appearance Cloudy H (Clear) Urine pH 5.0 (5.0-9.0) Ur Specific [place] 1.031 (1.001-1.035) Urine Protein Trace (Negative) mg/dL Urine Glucose (UA) Negative (Negative) mg/dL Urine Ketones 3+ H (Negative) mg/dL Ur Blood (Man) Negative (Negative) Urine Nitrate Negative (Negative) Urine Bilirubin Negative (Negative) Urine Urobilinogen 1.0 (<2.0) mg/dL Add Ur Microanalysis Reviewed Leukocyte Esterase Rfl Negative (Negative) JOHNNY/UL Urine RBC 11-20 H (0-2) /hpf Urine WBC 6-10 H (0-3) /hpf Ur Squamous Epith Cells Few (Few) /hpf Urine Bacteria Rare /hpf Urine Casts 6-10 POC Urine HCG, Qual Positive (Negative) Imaging Data Attestation: I personally reviewed and interpreted this imaging study as follows: Radiologist's impression: Patient's vaginal ultrasound indicates single intrauterine gestation with cardiac activity. Ultrasound age 10 weeks 1 day. Heart rate 180. Unremarkable ovaries. No acute finding. Discharge Plan Discharge Clinical Impression: Dehydration, Urinary tract infection affecting , Hyperemesis arising during Patient Disposition: Home Condition: Stable Instructions: Antibiotic Form, Nausea and Vomiting in (ED) Additional Instructions: Please return to the ER with any worsening symptoms. Follow-up with your OBGYN as soon as possible for further treatment and evaluation. You may take Reglan as needed for nausea. Please complete your full dose of antibiotics. You may take Tylenol as needed for pain control. Patient Language: Haitian Prescriptions: New metoclopramide HCl [Reglan] 10 mg tablet 10 mg PO Q6H PRN (Reason: nausea and vomiting) Qty: 30 0RF cephalexin 500 mg capsule 500 mg PO Q8H 10 Days Qty: 30 0RF No Action azithromycin [Zithromax Z-Castro] 250 mg tablet See Rx Instructions .ROUTE .COMPLEX Qty: 6 0RF Rx Instructions: For 250 mg dose pack: take 500 mg today (day 1), then 250 mg for 4 days (days 2-5) benzonatate 200 mg capsule 200 mg PO TID PRN (Reason: cough) Qty: 20 0RF Follow-up/Referrals: PHYSICIAN,BUSINESS DEVELOPMENT RECRUITER [Primary Care Provider, Internal Medicine] Ce English CNM [Certified Nurse River Guide, DISBURSEMENT CLERK] Stand Alone Forms: Work/School Release IP Time of Disposition: 01:48
[2025-02-26 23:23] LABS: Alanine Aminotransferase 16 U/L (6-35); Albumin Level 4.7 g/dL (3.5-5.1); Alkaline Phosphatase 43 U/L (38-126); Anion Gap 10 mmol/L (4-12); Aspartate Amino Transferase 23 U/L (14-36); Bilirubin,Total 1.2 mg/dL (0.2-1.3); Blood Urea Nitrogen 6 mg/dL (7-17); Calcium 9.2 mg/dL (8.4-10.2); Carbon Dioxide 22 mmol/L (22-30); Chloride 101 mmol/L (98-107); Estimated CRCL calculation 108 ml/min; Estimated Glomerular Filt Rate > 60; Glucose 103 mg/dL (65-110); Potassium 3.5 mmol/L (3.4-5.0); Sodium 133 mmol/L (137-145); Total Protein 8.1 g/dL (6.3-8.2)
[2025-02-26] MEDS: SODIUM CHLORIDE 0.9% IV 1,000 ML 999 ML IV CONT (23:25)
[2025-02-26] MEDS: METOCLOPRAMIDE HCL INJ 10 MG/2 ML VIAL IV PUSH (23:25)
[2025-02-26 23:27] LABS: Add Urine Microscopic? YES; Appearance Urine Cloudy (Clear); Glucose Urine UA Negative (Negative); Leukocyte Esterase Ur Negative LEU/UL (Negative); Need Manual Microscopic Reviewed; Nitrate Urine Negative (Negative); Specific Grav Ur 1.031 (1.001-1.035)
[2025-02-27 00:05] LABS: Beta HCG Quantitative 127690.00 mIU/ML
[2025-02-27] MEDS: CEPHALEXIN 500 MG CAPSULE PO (01:57)
[2025-02-27 01:58] VITALS: BP 105/65; PULSE 80; RESP 16; O2SAT 98
== END 2025-02-27 02:05 | disposition home or self-care (01) ==
PROVIDERS: Emergency Provider Registered Nurse
DX: O21.1 Hyperemesis gravidarum with metabolic disturbance (principal); O23.41 Unspecified infection of urinary tract in pregnancy, first trimester; N39.0 Urinary tract infection, site not specified; Z3A.10 10 weeks gestation of pregnancy
CPT/HCPCS: 36415; 76801; 80053; 81001; 81025; 84702; 85025; 87086; 96361; 96374; 96375; 99284; A9270; J1200; J2765; J7030